=== PATIENT | female | born 1970 | race Caucasian/White ===

== ENCOUNTER 2021-03-20 12:01 | Outpatient (CLI) | payer OTHER | END 2021-03-20 15:20 | disposition home or self-care (01) | LOC: LAB 12:01 | DX: Z01.818 Encounter for other preprocedural examination (principal) ==

== ENCOUNTER 2021-04-01 11:41 | Outpatient (CLI) | payer OTHER | END 2021-04-01 11:44 | disposition home or self-care (01) | LOC: LAB 11:41 | DX: Z20.828 Contact with and (suspected) exposure to other viral communicable diseases (principal) ==